=== PATIENT | female | born 1995 | race Native Hawaiian/Other Pacific Islander ===

== ENCOUNTER 2019-11-13 11:20 | Emergency (ER) | payer MEDICAID ==
[~2019-11-13] VITALS: Ht 165.1 cm; Wt 100.0 kg
[2019-11-13] MEDS ORDERED: IBUPROFEN 800 MG TABLET PO ONE (11:45)
[2019-11-13 13:00] VITALS: BP 123/77
== END 2019-11-13 15:32 | disposition home or self-care (01) ==
LOC: EMS 11:22
DX: S82.442A Displaced spiral fracture of shaft of left fibula, initial encounter for closed fracture (principal); F17.210 Nicotine dependence, cigarettes, uncomplicated; X50.9XXA Other and unspecified overexertion or strenuous movements or postures, initial encounter; Y93.89 Activity, other specified; Y92.89 Other specified places as the place of occurrence of the external cause; Y99.8 Other external cause status
CPT/HCPCS: 29515

== ENCOUNTER 2020-02-26 07:23 | Emergency (ER) | payer MEDICAID ==
[~2020-02-26] VITALS: Ht 157.5 cm; Wt 88.6 kg
[2020-02-26] MEDS ORDERED: IBUP-2271 PO (07:30)
[2020-02-26] MEDS ORDERED: IBUPROFEN 600 MG TABLET PO ONE (08:15)
[2020-02-26] MEDS ORDERED: AMOX TR/POT CLAV 875 MG/125 MG TABLET PO ONE (08:15)
[2020-02-26 08:16] VITALS: BP 115/80
== END 2020-02-26 08:18 | disposition home or self-care (01) ==
LOC: EMS 07:24
DX: K08.89 Other specified disorders of teeth and supporting structures (principal); F17.210 Nicotine dependence, cigarettes, uncomplicated; Z79.899 Other long term (current) drug therapy